=== PATIENT | male | born 1970 | race Caucasian/White ===

== ENCOUNTER 2019-05-14 18:39 | Emergency (ER) | payer OTHER ==
[~2019-05-14] VITALS: Ht 177.8 cm; Wt 72.6 kg
[2019-05-14 19:16] VITALS: BP 111/71
[2019-05-14] MEDS ORDERED: TDAP [DIPH/PERTUSSIS/TET] 0.5 ML VIAL IM ONE ×2 (19:54→20:00)
[2019-05-14] MEDS ORDERED: ACETAMINOPHEN 325 MG TABLET PO ONE (20:00)
[2019-05-14] MEDS ORDERED: ACETAMINOPHEN 325 MG TABLET ONE (20:01)
== END 2019-05-14 20:43 | disposition home or self-care (01) ==
LOC: ER 18:42
DX: S61.217A Laceration without foreign body of left little finger without damage to nail, initial encounter (principal); Z98.890 Other specified postprocedural states; W26.0XXA Contact with knife, initial encounter; Y93.89 Activity, other specified; Y92.89 Other specified places as the place of occurrence of the external cause; Y99.8 Other external cause status
CPT/HCPCS: 12001; 90471; 90715; 99283; A6403

== ENCOUNTER 2019-05-16 09:12 | Emergency (ER) | payer OTHER ==
[~2019-05-16] VITALS: Ht 177.8 cm; Wt 72.6 kg
[2019-05-16 09:15] VITALS: BP 104/70
== END 2019-05-16 09:46 | disposition home or self-care (01) ==
LOC: ER 09:12
DX: S61.217D Laceration without foreign body of left little finger without damage to nail, subsequent encounter (principal); Z98.890 Other specified postprocedural states; X58.XXXD Exposure to other specified factors, subsequent encounter

== ENCOUNTER 2019-05-25 09:14 | Emergency (ER) | payer OTHER ==
[~2019-05-25] VITALS: Ht 177.8 cm; Wt 74.8 kg
[2019-05-25 09:17] VITALS: BP 110/71
[2019-05-25] MEDS ORDERED: BACITRACIN ZINC OINT PACKET 1 EA PACKET TP ONE (09:28)
== END 2019-05-25 09:55 | disposition home or self-care (01) ==
LOC: ER 09:14
DX: T81.30XA Disruption of wound, unspecified, initial encounter (principal); S61.217D Laceration without foreign body of left little finger without damage to nail, subsequent encounter; Z98.890 Other specified postprocedural states; W26.0XXD Contact with knife, subsequent encounter